=== PATIENT | male | born 1985 | race Caucasian/White ===

== ENCOUNTER 2020-09-09 22:10 | Emergency (ER) | payer OTHER ==
[2020-09-10] MEDS ORDERED: NEOSPORIN OIN14.2 GM TP (00:26)
[2020-09-10] MEDS ORDERED: IBUPROFEN600 MG PO (00:26)
== END 2020-09-10 00:35 | disposition home or self-care (01) ==
LOC: ER1 22:10
DX: N48.89 Other specified disorders of penis (principal); F17.210 Nicotine dependence, cigarettes, uncomplicated; Z88.8 Allergy status to other drugs, medicaments and biological substances
CPT/HCPCS: 81001; 99283

== ENCOUNTER 2021-08-18 19:47 | Emergency (ER) | payer OTHER ==
[~2021-08-18 19:47] MED LIST: IBUPROFEN600 MG PO; NEOSPORIN OIN14.2 GM TP
[2021-08-18 21:03] LABS: HEMOGLOBIN 16.1 gm/dl (14.0-17.5); RED BLOOD COUNT 4.88 M/UL (4.20-5.50); WHITE BLOOD COUNT 6.7 K/UL (4.5-11.0)
[2021-08-18 21:31] LABS: BUN/CREATININE RATIO 10 (0-10)
[2021-08-18] MEDS ORDERED: TORADOL 10 MG T10 MG PO (23:01)
== END 2021-08-18 23:16 | disposition home or self-care (01) ==
LOC: ER1 19:47
PROVIDERS: Physician Assistant
DX: J40 Bronchitis, not specified as acute or chronic (principal); R09.1 Pleurisy; F17.200 Nicotine dependence, unspecified, uncomplicated; Z20.822 Contact with and (suspected) exposure to COVID-19; J44.9 Chronic obstructive pulmonary disease, unspecified; Z88.0 Allergy status to penicillin
CPT/HCPCS: 0240U; 71045; 80053; 82550; 82553; 84484; 85025; 93005; 96372; 99285; J1885